=== PATIENT | male | born 1960 | race Caucasian/White ===

== ENCOUNTER 2017-10-11 12:49 | Inpatient (IN) | payer MEDICARE, MEDICAID ==
[~2017-10-11] VITALS: Ht 170.2 cm; Wt 67.6 kg
[2017-10-11 12:31] VITALS: BP 116/60
[2017-10-11] MEDS ORDERED: LORazepam 2 MG TABLET PO PRN (13:15)
[2017-10-11] MEDS ORDERED: HALOPERIDOL 5 MG TABLET PO PRN (13:15)
[2017-10-11] MEDS ORDERED: RANI300C PO (13:45)
[2017-10-11] MEDS ORDERED: OLAN10TA3 PO (13:45)
[2017-10-11] MEDS ORDERED: RISP3 PO (13:45)
[2017-10-11] MEDS ORDERED: LITH300C3 PO (13:45)
[2017-10-11] MEDS ORDERED: INFLUENZA VIRUS VACCINE QVS 2017-18 (3YR+)/PF 60 MCG/0.5 ML SYRINGE IM ONE (14:15)
[2017-10-11 14:56] VITALS: BP 117/77
[2017-10-11 18:52] VITALS: BP 125/71
[2017-10-11] MEDS: LITHIUM CARBONATE 300 MG CAPSULE PO SCH (18:55)
[2017-10-11] MEDS: RisperiDONE 3 MG TABLET PO SCH (18:56)
[2017-10-11 23:30] VITALS: BP 120/70
[2017-10-12 03:30] VITALS: BP 124/63
[2017-10-12 08:24] LABS: BASOPHILS # (AUTO) 0.09 K/uL (0.00-0.20); BASOPHILS % (AUTO) 1.2 % (0.0-2.0); EOSINOPHILS # (AUTO) 0.38 K/uL (0.00-0.70); EOSINOPHILS % (AUTO) 5.04 % (1.0-6.0); HEMOGLOBIN 12.7 g/dL (13.5-17.5); LYMPHOCYTES # (AUTO) 1.7 K/uL (1.0-4.8); LYMPHOCYTES % (AUTO) 22.2 % (22.0-44.0); MEAN CORPUSCULAR HEMOGLOBIN 28.2 pg (26.0-34.0); MEAN CORPUSCULAR HGB CONC 31.7 G/dL (31.0-37.0); MEAN CORPUSCULAR VOLUME 89 fL (80-100); MONOCYTES # (AUTO) 0.6 K/uL (0.1-1.0); MONOCYTES % (AUTO) 8.1 % (2.0-9.0); NEUTROPHILS # (AUTO) 4.7 K/uL (1.8-7.7); NEUTROPHILS % (AUTO) 63.5 % (40.0-70.0); PLATELET COUNT (AUTO) 311 K/uL (150-450); RED CELL DISTRIBUTION WIDTH 13.9 % (11.5-14.5); WHITE BLOOD COUNT (AUTO) 7.5 K/uL (4.5-11.0)
[2017-10-12 08:40] LABS: LITHIUM 0.21 mmol/L (0.60-1.20)
[2017-10-12 08:59] LABS: ALANINE AMINOTRANSFERASE 69 U/L (12-78); ALBUMIN 3.6 g/dL (3.4-5.0); ANION GAP 4 mmol/L (8-16); ASPARTATE AMINOTRANSFERASE 59 U/L (15-37); BILIRUBIN,TOTAL 0.7 mg/dL (0.1-1.0); CALCIUM, TOTAL 9.9 mg/dL (8.8-10.5); CARBON DIOXIDE 30 mmol/L (22-29); CHLORIDE 102 mmol/L (98-107); CHOL/HDL RATIO 3.4 (4.2-7.3); CREATININE 0.93 mg/dL (0.60-1.30); GLOMERULAR FILTR. RATE CALC > 60 mL/min (>60); POTASSIUM 4.7 mmol/L (3.5-5.1); SODIUM SERUM 136 mmol/L (136-145); THYROID STIMULATING HORMONE 1.67 uIU/mL (0.36-3.74); TOTAL PROTEIN, SERUM 7.7 g/dL (6.4-8.2); UREA NITROGEN, BLOOD 19 mg/dL (7-18)
[2017-10-12] MEDS: RANITIDINE HCL 150 MG TABLET PO SCH (09:00)
[2017-10-12] MEDS: LITHIUM CARBONATE 300 MG CAPSULE PO SCH ×2 (09:00→16:43)
[2017-10-12] MEDS: RisperiDONE 3 MG TABLET PO SCH ×2 (09:00→16:43)
[2017-10-12] MEDS: NICOTINE 21 MG/24 HOUR PATCH TD SCH (09:01)
[2017-10-12 10:23] VITALS: BP 127/77
[2017-10-12 16:13] VITALS: BP 104/62
[2017-10-12] MEDS: ZOLPIDEM TARTRATE 10 MG TABLET PO PRN (22:14)
[2017-10-13] VITALS: BP 108/75
[2017-10-13 00:25] VITALS: BP 108/75
[2017-10-13] MEDS: TraMADol HCL 50 MG TABLET PO PRN (00:27)
[2017-10-13 08:36] VITALS: BP 117/77
[2017-10-13] MEDS: RANITIDINE HCL 150 MG TABLET PO SCH (08:52)
[2017-10-13] MEDS: LITHIUM CARBONATE 300 MG CAPSULE PO SCH ×2 (08:52→16:42)
[2017-10-13] MEDS: RisperiDONE 3 MG TABLET PO SCH ×2 (08:52→16:42)
[2017-10-13] MEDS: NICOTINE 21 MG/24 HOUR PATCH TD SCH (08:52)
[2017-10-13 16:17] VITALS: BP 123/60
[2017-10-14 00:36] VITALS: BP 122/74
[2017-10-14] MEDS: TraMADol HCL 50 MG TABLET PO PRN (05:23)
[2017-10-14 07:54] LABS: HEPATITIS Bs ANTIGEN SCREEN P Negative (Negative); HEPATITIS C AB SCREEN >11.0 s/co ratio (0.0-0.9)
[2017-10-14 08:23] VITALS: BP 107/71
[2017-10-14] MEDS: NICOTINE 21 MG/24 HOUR PATCH TD SCH (08:23)
[2017-10-14] MEDS: LITHIUM CARBONATE 300 MG CAPSULE PO SCH ×2 (08:23→16:14)
[2017-10-14] MEDS: RANITIDINE HCL 150 MG TABLET PO SCH (08:23)
[2017-10-14] MEDS: RisperiDONE 3 MG TABLET PO SCH ×2 (08:23→16:14)
[2017-10-14 16:19] VITALS: BP 120/81
[2017-10-15] MEDS: ZOLPIDEM TARTRATE 10 MG TABLET PO PRN (00:37)
[2017-10-15 00:56] VITALS: BP 113/70
[2017-10-15] MEDS: RisperiDONE 3 MG TABLET PO SCH ×2 (08:14→16:17)
[2017-10-15] MEDS: LITHIUM CARBONATE 300 MG CAPSULE PO SCH ×2 (08:14→16:17)
[2017-10-15] MEDS: RANITIDINE HCL 150 MG TABLET PO SCH (08:15)
[2017-10-15] MEDS: NICOTINE 21 MG/24 HOUR PATCH TD SCH (08:15)
[2017-10-15 08:36] VITALS: BP_SYST 111; BP_SYST 123; BP_DIAS 66; BP_DIAS 73
[2017-10-15 16:17] VITALS: BP 131/77
[2017-10-16 00:01] VITALS: BP 106/68
[2017-10-16] MEDS: ZOLPIDEM TARTRATE 10 MG TABLET PO PRN (00:02)
[2017-10-16] MEDS: LITHIUM CARBONATE 300 MG CAPSULE PO SCH (08:24)
[2017-10-16] MEDS: NICOTINE 21 MG/24 HOUR PATCH TD SCH (08:25)
[2017-10-16] MEDS: RisperiDONE 3 MG TABLET PO SCH (08:25)
[2017-10-16] MEDS: RANITIDINE HCL 150 MG TABLET PO SCH (08:25)
[2017-10-16 08:56] VITALS: BP 118/88
[2017-10-16] MEDS ORDERED: NICO-704 TD (10:54)
[2017-10-17 08:33] LABS: GC DNA N.A. AMPLIFY Negative (Negative)
== END 2017-10-16 12:55 | disposition home or self-care (01) | DRG 885 ==
LOC: EDSTATUS 12:49 → B2X 13:16 → EDSTATUS 13:20 → B2X 10-15 04:59
PROVIDERS: ADMIT Psychiatry & Neurology Psychiatry; ATTEND Psychiatry & Neurology Psychiatry
DX: F25.9 Schizoaffective disorder, unspecified (principal); R45.851 Suicidal ideations; F17.200 Nicotine dependence, unspecified, uncomplicated; G47.00 Insomnia, unspecified; J44.9 Chronic obstructive pulmonary disease, unspecified; K21.9 Gastro-esophageal reflux disease without esophagitis; Z90.49 Acquired absence of other specified parts of digestive tract; S62.316A Displaced fracture of base of fifth metacarpal bone, right hand, initial encounter for closed fracture; X58.XXXA Exposure to other specified factors, initial encounter; Y93.89 Activity, other specified; Y92.89 Other specified places as the place of occurrence of the external cause; Y99.8 Other external cause status; Z71.6 Tobacco abuse counseling; Z79.899 Other long term (current) drug therapy
CPT/HCPCS: 80074; 82306; 83036; 84439; 84443; 86592; 86694; 87389; 87491; 87591

== ENCOUNTER 2017-10-11 15:33 | Emergency (ER) | payer MEDICARE, MEDICAID ==
[~2017-10-11] VITALS: Ht 172.7 cm; Wt 81.8 kg
[~2017-10-11 15:33] MED LIST: LITH300C3 PO; OLAN10TA3 PO; RANI300C PO; RISP3 PO
[2017-10-11] MEDS ORDERED: TraMADol HCL 50 MG TABLET PO ONE (15:45)
[2017-10-11 16:57] VITALS: BP 146/82
== END 2017-10-11 18:22 | disposition home or self-care (01) ==
LOC: EMS 15:40
DX: S62.316A Displaced fracture of base of fifth metacarpal bone, right hand, initial encounter for closed fracture (principal); X58.XXXA Exposure to other specified factors, initial encounter; Y93.89 Activity, other specified; Y92.89 Other specified places as the place of occurrence of the external cause; Y99.8 Other external cause status
CPT/HCPCS: 99284

== ENCOUNTER 2017-10-27 15:30 | Inpatient (IN) | payer MEDICARE, MEDICAID ==
[~2017-10-27] VITALS: Ht 170.2 cm; Wt 70.5 kg
[~2017-10-27 15:30] MED LIST changes: +NICO-704 TD; -OLAN10TA3 PO
[2017-10-27] MEDS ORDERED: VANCOMYCIN HCL 1 GM/D5% WATER 200 ML IV ONE (16:15)
[2017-10-27 16:38] LABS: BASOPHILS % (AUTO) 1.1 % (0.0-2.0); EOSINOPHILS % (AUTO) 6.4 % (1.0-6.0); HEMATOCRIT 34.1 % (41-53); HEMOGLOBIN 11.6 g/dL (13.5-17.5); LYMPHOCYTES # (AUTO) 1.7 K/uL (1.0-4.8); LYMPHOCYTES % (AUTO) 18.8 % (22.0-44.0); MEAN CORPUSCULAR HEMOGLOBIN 29.9 pg (26.0-34.0); MEAN CORPUSCULAR HGB CONC 34.2 G/dL (31.0-37.0); MEAN CORPUSCULAR VOLUME 87 fL (80-100); MONOCYTES # (AUTO) 0.6 K/uL (0.1-1.0); MONOCYTES % (AUTO) 7.4 % (2.0-9.0); NEUTROPHILS # (AUTO) 5.8 K/uL (1.8-7.7); NEUTROPHILS % (AUTO) 66.3 % (40.0-70.0); PLATELET COUNT (AUTO) 478 K/uL (150-450); RED CELL DISTRIBUTION WIDTH 14.4 % (11.5-14.5); WHITE BLOOD COUNT (AUTO) 8.8 K/uL (4.5-11.0)
[2017-10-27 17:02] LABS: ANION GAP 10 mmol/L (8-16); CALCIUM, TOTAL 9.1 mg/dL (8.8-10.5); CARBON DIOXIDE 27 mmol/L (22-29); CHLORIDE 101 mmol/L (98-107); CREATININE 0.76 mg/dL (0.60-1.30); GLOMERULAR FILTR. RATE CALC > 60 mL/min (>60); POTASSIUM 3.8 mmol/L (3.5-5.1); SODIUM SERUM 138 mmol/L (136-145); UREA NITROGEN, BLOOD 17 mg/dL (7-18)
[2017-10-27 17:07] LABS: ALANINE AMINOTRANSFERASE 59 U/L (12-78); ALBUMIN 3.6 g/dL (3.4-5.0); ASPARTATE AMINOTRANSFERASE 39 U/L (15-37); BILIRUBIN,TOTAL 0.4 mg/dL (0.1-1.0)
[2017-10-27] MEDS ORDERED: ONDANSETRON HCL 4 MG/2 ML VIAL IVP PRN (17:30)
[2017-10-27] MEDS ORDERED: ACETAMINOPHEN 325 MG TABLET PO PRN (17:30)
[2017-10-27] MEDS ORDERED: 0.9% SODIUM CHLORIDE 10 ML SYRINGE IVP PRN (17:30)
[2017-10-27 18:44] VITALS: BP 134/71
[2017-10-27 23:18] VITALS: BP 126/77
[2017-10-28] MEDS ORDERED: VANCOMYCIN HCL 1 GM/D5% WATER 200 ML IV SCH
[2017-10-28] MEDS ORDERED: 0.9% SODIUM CHLORIDE 10 ML SYRINGE IVP PRN
[2017-10-28] MEDS ORDERED: VANCOMYCIN HCL 1.5 GM in DEXTROSE 5%-WATER 250 ML IV ONE (00:30)
[2017-10-28] MEDS ORDERED: INFLUENZA VIRUS VACCINE QVS 2017-18 (3YR+)/PF 60 MCG/0.5 ML SYRINGE IM ONE (00:30)
[2017-10-28] MEDS ORDERED: SODIUM CHLORIDE 0.9% 250 ML IV ONE (00:33)
[2017-10-28] MEDS: RisperiDONE 3 MG TABLET PO SCH ×2 (00:55→09:01)
[2017-10-28 05:27] VITALS: BP 136/66
[2017-10-28 06:32] LABS: BASOPHILS % (AUTO) 1.5 % (0.0-2.0); EOSINOPHILS % (AUTO) 6.6 % (1.0-6.0); HEMATOCRIT 32.1 % (41-53); HEMOGLOBIN 10.8 g/dL (13.5-17.5); LYMPHOCYTES # (AUTO) 1.3 K/uL (1.0-4.8); LYMPHOCYTES % (AUTO) 19.1 % (22.0-44.0); MEAN CORPUSCULAR HEMOGLOBIN 29.7 pg (26.0-34.0); MEAN CORPUSCULAR HGB CONC 33.7 G/dL (31.0-37.0); MEAN CORPUSCULAR VOLUME 88 fL (80-100); MONOCYTES # (AUTO) 0.6 K/uL (0.1-1.0); MONOCYTES % (AUTO) 8.9 % (2.0-9.0); NEUTROPHILS # (AUTO) 4.3 K/uL (1.8-7.7); NEUTROPHILS % (AUTO) 63.9 % (40.0-70.0); PLATELET COUNT (AUTO) 400 K/uL (150-450); RED BLOOD CELL COUNT(AUTO) 3.64 MIL/uL (4.50-5.90); RED CELL DISTRIBUTION WIDTH 14.5 % (11.5-14.5); WHITE BLOOD COUNT (AUTO) 6.7 K/uL (4.5-11.0)
[2017-10-28 07:35] VITALS: BP 132/79
[2017-10-28 07:42] LABS: ALANINE AMINOTRANSFERASE 60 U/L (12-78); ALBUMIN 3.1 g/dL (3.4-5.0); ANION GAP 11 mmol/L (8-16); ASPARTATE AMINOTRANSFERASE 48 U/L (15-37); BILIRUBIN,TOTAL 0.3 mg/dL (0.1-1.0); CALCIUM, TOTAL 8.9 mg/dL (8.8-10.5); CARBON DIOXIDE 24 mmol/L (22-29); CHLORIDE 106 mmol/L (98-107); CREATININE 0.71 mg/dL (0.60-1.30); GLOMERULAR FILTR. RATE CALC > 60 mL/min (>60); POTASSIUM 3.7 mmol/L (3.5-5.1); SODIUM SERUM 141 mmol/L (136-145); TOTAL PROTEIN, SERUM 7.2 g/dL (6.4-8.2); UREA NITROGEN, BLOOD 15 mg/dL (7-18)
[2017-10-28] MEDS ORDERED: VANCOMYCIN HCL 1.5 GM in DEXTROSE 5%-WATER 250 ML IV SCH (08:00)
[2017-10-28] MEDS: HEPARIN SODIUM,PORCINE 5,000 UNITS/ML VIAL SQ SCH ×3 (09:00→23:35)
[2017-10-28] MEDS: RANITIDINE HCL 150 MG TABLET PO SCH (09:01)
[2017-10-28] MEDS: LITHIUM CARBONATE 300 MG CAPSULE PO SCH (09:01)
[2017-10-28] MEDS: VANCOMYCIN HCL 1 GM/D5% WATER 200 ML IV SCH ×2 (09:01→21:20)
[2017-10-28] MEDS: NICOTINE 21 MG/24 HOUR PATCH TD SCH (09:01)
[2017-10-28 11:30] VITALS: BP 125/72
[2017-10-28 15:39] VITALS: BP 139/78
[2017-10-28] MEDS: MULTIVITAMINS WITH MINERALS, THERAPEUTIC TABLET PO SCH (17:38)
[2017-10-28 20:11] VITALS: BP 115/61
[2017-10-28 23:10] VITALS: BP 130/74
[2017-10-28] MEDS: HYDROCODONE/ACETAMINOPHEN 5-325 MG TABLET PO PRN (23:31)
[2017-10-28] MEDS: DiphenhydrAMINE HCL 25 MG CAPSULE PO PRN (23:32)
[2017-10-29 04:19] VITALS: BP 124/66
[2017-10-29 06:51] LABS: CARBON DIOXIDE 29 mmol/L (22-29); CHLORIDE 100 mmol/L (98-107); POTASSIUM 3.6 mmol/L (3.5-5.1); SODIUM SERUM 137 mmol/L (136-145)
[2017-10-29 06:52] LABS: ANION GAP 8 mmol/L (8-16); CALCIUM, TOTAL 9.2 mg/dL (8.8-10.5); CREATININE 0.89 mg/dL (0.60-1.30); GLOMERULAR FILTR. RATE CALC > 60 mL/min (>60); UREA NITROGEN, BLOOD 14 mg/dL (7-18)
[2017-10-29 08:03] VITALS: BP 127/77
[2017-10-29] MEDS: RANITIDINE HCL 150 MG TABLET PO SCH (08:19)
[2017-10-29] MEDS: LITHIUM CARBONATE 300 MG CAPSULE PO SCH (08:19)
[2017-10-29] MEDS: RisperiDONE 3 MG TABLET PO SCH (08:19)
[2017-10-29] MEDS: MULTIVITAMINS WITH MINERALS, THERAPEUTIC TABLET PO SCH (08:19)
[2017-10-29] MEDS: VANCOMYCIN HCL 1 GM/D5% WATER 200 ML IV SCH ×2 (08:19→21:22)
[2017-10-29] MEDS: NICOTINE 21 MG/24 HOUR PATCH TD SCH (08:19)
[2017-10-29] MEDS: HEPARIN SODIUM,PORCINE 5,000 UNITS/ML VIAL SQ SCH ×2 (08:19→16:43)
[2017-10-29 11:25] VITALS: BP 105/69
[2017-10-29 15:18] VITALS: BP 128/64
[2017-10-29 20:50] VITALS: BP 129/84
[2017-10-30 00:04] VITALS: BP_SYST 113; BP_SYST 137; BP_DIAS 40; BP_DIAS 77
[2017-10-30] MEDS: LITHIUM CARBONATE 300 MG CAPSULE PO SCH (04:46)
[2017-10-30] MEDS: RisperiDONE 3 MG TABLET PO SCH (04:46)
[2017-10-30 05:33] VITALS: BP 113/65
[2017-10-30 06:58] LABS: ANION GAP 8 mmol/L (8-16); CALCIUM, TOTAL 9.5 mg/dL (8.8-10.5); CARBON DIOXIDE 26 mmol/L (22-29); CHLORIDE 101 mmol/L (98-107); CREATININE 0.89 mg/dL (0.60-1.30); GLOMERULAR FILTR. RATE CALC > 60 mL/min (>60); POTASSIUM 3.9 mmol/L (3.5-5.1); SODIUM SERUM 135 mmol/L (136-145); UREA NITROGEN, BLOOD 18 mg/dL (7-18)
[2017-10-30 07:22] VITALS: BP 102/68
[2017-10-30] MEDS: NICOTINE 21 MG/24 HOUR PATCH TD SCH (08:56)
[2017-10-30] MEDS: RANITIDINE HCL 150 MG TABLET PO SCH (08:56)
[2017-10-30] MEDS: MULTIVITAMINS WITH MINERALS, THERAPEUTIC TABLET PO SCH (08:56)
[2017-10-30] MEDS: VANCOMYCIN HCL 1 GM/D5% WATER 200 ML IV SCH ×2 (08:56→20:41)
[2017-10-30] MEDS: HEPARIN SODIUM,PORCINE 5,000 UNITS/ML VIAL SQ SCH ×4 (08:56→23:53)
[2017-10-30 11:44] VITALS: BP 118/68
[2017-10-30 15:51] VITALS: BP 137/80
[2017-10-30 20:52] VITALS: BP 135/65
[2017-10-30] MEDS: DiphenhydrAMINE HCL 25 MG CAPSULE PO PRN (23:48)
[2017-10-31 00:07] VITALS: BP 111/81
[2017-10-31 04:40] VITALS: BP 114/85
[2017-10-31] MEDS: HYDROCODONE/ACETAMINOPHEN 5-325 MG TABLET PO PRN (05:39)
[2017-10-31 06:25] LABS: ANION GAP 6 mmol/L (8-16); CALCIUM, TOTAL 10.1 mg/dL (8.8-10.5); CARBON DIOXIDE 30 mmol/L (22-29); CHLORIDE 102 mmol/L (98-107); CREATININE 0.89 mg/dL (0.60-1.30); GLOMERULAR FILTR. RATE CALC > 60 mL/min (>60); POTASSIUM 4.7 mmol/L (3.5-5.1); SODIUM SERUM 138 mmol/L (136-145); UREA NITROGEN, BLOOD 22 mg/dL (7-18)
[2017-10-31 07:09] VITALS: BP 125/78
[2017-10-31] MEDS: HEPARIN SODIUM,PORCINE 5,000 UNITS/ML VIAL SQ SCH (08:34)
[2017-10-31] MEDS: RANITIDINE HCL 150 MG TABLET PO SCH (08:34)
[2017-10-31] MEDS: MULTIVITAMINS WITH MINERALS, THERAPEUTIC TABLET PO SCH (08:34)
[2017-10-31] MEDS: RisperiDONE 3 MG TABLET PO SCH (08:34)
[2017-10-31] MEDS: NICOTINE 21 MG/24 HOUR PATCH TD SCH (08:34)
[2017-10-31] MEDS: LITHIUM CARBONATE 300 MG CAPSULE PO SCH (08:34)
[2017-10-31] MEDS: VANCOMYCIN HCL 1 GM/D5% WATER 200 ML IV SCH (08:35)
[2017-10-31] MEDS ORDERED: MUPIROCIN CALCIUM 2% 22 GM OINTMENT TP SCH (09:00)
[2017-10-31] MEDS ORDERED: CHLORHEXIDINE GLUCONATE 4% 118 ML TOPICAL LIQUID TP SCH (09:00)
[2017-10-31 11:25] VITALS: BP 123/71
[2017-10-31] MEDS ORDERED: SULF1TAB42 PO (14:16)
== END 2017-10-31 15:20 | disposition home or self-care (01) | DRG 603 ==
LOC: EMS 15:32 → 6N 17:33
PROVIDERS: ADMIT Family Medicine; ATTEND Family Medicine
DX: L03.113 Cellulitis of right upper limb (principal); F20.9 Schizophrenia, unspecified; S62.318A Displaced fracture of base of other metacarpal bone, initial encounter for closed fracture; K21.9 Gastro-esophageal reflux disease without esophagitis; Z87.891 Personal history of nicotine dependence; S61.431A Puncture wound without foreign body of right hand, initial encounter; B95.61 Methicillin susceptible Staphylococcus aureus infection as the cause of diseases classified elsewhere
CPT/HCPCS: 80307; 83735; 86140; 87040; 87070; 87081; 87205; 90471; 96365; 99285; G0480; J1644; J3370; J7050; J7060

== ENCOUNTER 2017-12-04 18:57 | Inpatient (IN) | payer MEDICARE, MEDICAID ==
[~2017-12-04] VITALS: Ht 172.7 cm; Wt 68.0 kg
[~2017-12-04 18:57] MED LIST changes: +SULF1TAB42 PO
[2017-12-04 19:37] VITALS: BP 131/79
[2017-12-04] MEDS ORDERED: INFLUENZA VIRUS VACCINE QVS 2017-18 (3YR+)/PF 60 MCG/0.5 ML SYRINGE IM ONE (20:00)
[2017-12-05 00:30] VITALS: BP 127/82
[2017-12-05 08:00] VITALS: BP 122/75
[2017-12-05] MEDS: CEPHALEXIN MONOHYDRATE 500 MG CAPSULE PO SCH ×4 (09:25→20:14)
[2017-12-05] MEDS: RisperiDONE 3 MG TABLET PO SCH (16:33)
[2017-12-05 17:03] VITALS: BP 125/64
[2017-12-06 01:54] VITALS: BP 132/76
[2017-12-06 08:11] LABS: BASOPHILS % (AUTO) 0.6 % (0.0-2.0); EOSINOPHILS % (AUTO) 1.6 % (1.0-6.0); HEMATOCRIT 35.4 % (41-53); LYMPHOCYTES # (AUTO) 1.4 K/uL (1.0-4.8); MEAN CORPUSCULAR HEMOGLOBIN 29.6 pg (26.0-34.0); MEAN CORPUSCULAR HGB CONC 33.9 G/dL (31.0-37.0); MEAN CORPUSCULAR VOLUME 87 fL (80-100); MONOCYTES # (AUTO) 0.6 K/uL (0.1-1.0); MONOCYTES % (AUTO) 7.2 % (2.0-9.0); NEUTROPHILS # (AUTO) 5.8 K/uL (1.8-7.7); NEUTROPHILS % (AUTO) 72.6 % (40.0-70.0); PLATELET COUNT (AUTO) 316 K/uL (150-450); RED BLOOD CELL COUNT(AUTO) 4.06 MIL/uL (4.50-5.90); RED CELL DISTRIBUTION WIDTH 14.8 % (11.5-14.5)
[2017-12-06 08:17] LABS: HEMOGLOBIN A1C 6.2 % (4.5-6.2)
[2017-12-06] MEDS: CEPHALEXIN MONOHYDRATE 500 MG CAPSULE PO SCH ×4 (08:46→21:31)
[2017-12-06] MEDS: RisperiDONE 3 MG TABLET PO SCH ×2 (08:46→16:32)
[2017-12-06 09:07] LABS: ALANINE AMINOTRANSFERASE 55 U/L (12-78); ALBUMIN 3.2 g/dL (3.4-5.0); ALKALINE PHOSPHATASE 81 U/L (46-116); ANION GAP 11 mmol/L (8-16); ASPARTATE AMINOTRANSFERASE 39 U/L (15-37); BILIRUBIN,TOTAL 0.4 mg/dL (0.1-1.0); CARBON DIOXIDE 25 mmol/L (22-29); CHLORIDE 105 mmol/L (98-107); CHOL/HDL RATIO 3.1 (4.2-7.3); CHOLESTEROL 94 mg/dL (131-200); CREATININE 0.89 mg/dL (0.60-1.30); GLOMERULAR FILTR. RATE CALC > 60 mL/min (>60); GLUCOSE,RANDOM 91 mg/dL (70-110); HDL CHOLESTEROL 30 mg/dL (40-60); LDL CHOL (CALC.) 46 mg/dL (0-130); SODIUM SERUM 141 mmol/L (136-145); THYROID STIMULATING HORMONE 0.79 uIU/mL (0.36-3.74); TOTAL PROTEIN, SERUM 7.5 g/dL (6.4-8.2); TRIGLYCERIDES 92 mg/dL (15-150); UREA NITROGEN, BLOOD 15 mg/dL (7-18)
[2017-12-06 09:10] LABS: LITHIUM < 0.20 mmol/L (0.60-1.20)
[2017-12-06 09:27] VITALS: BP 111/61
[2017-12-06 16:38] VITALS: BP 116/70
[2017-12-07 04:55] VITALS: BP 105/68
[2017-12-07] MEDS: RisperiDONE 3 MG TABLET PO SCH ×2 (08:23→16:21)
[2017-12-07] MEDS: LORazepam 2 MG TABLET PO PRN (08:23)
[2017-12-07 08:30] VITALS: BP 111/63
[2017-12-07] MEDS: CEPHALEXIN MONOHYDRATE 500 MG CAPSULE PO SCH ×4 (08:33→20:30)
[2017-12-07 16:16] VITALS: BP 142/68
[2017-12-08 06:56] VITALS: BP 131/82
[2017-12-08] MEDS: RisperiDONE 3 MG TABLET PO SCH ×2 (08:04→16:27)
[2017-12-08] MEDS: CEPHALEXIN MONOHYDRATE 500 MG CAPSULE PO SCH ×4 (08:04→20:16)
[2017-12-08 09:26] VITALS: BP 100/69
[2017-12-08] MEDS: LORazepam 2 MG TABLET PO PRN (12:02)
[2017-12-08] MEDS ORDERED: BISACODYL 5 MG EC TABLET PO PRN (13:45)
[2017-12-08 16:18] VITALS: BP 122/68
[2017-12-09] MEDS: ZOLPIDEM TARTRATE 10 MG TABLET PO PRN ×2 (00:49→22:14)
[2017-12-09 01:10] VITALS: BP 116/74
[2017-12-09 08:39] VITALS: BP 126/71
[2017-12-09] MEDS: RisperiDONE 3 MG TABLET PO SCH ×2 (08:45→16:53)
[2017-12-09] MEDS: CEPHALEXIN MONOHYDRATE 500 MG CAPSULE PO SCH ×4 (08:45→20:04)
[2017-12-09 16:11] VITALS: BP 115/65
[2017-12-10 05:52] VITALS: BP 130/80
[2017-12-10] MEDS: RisperiDONE 3 MG TABLET PO SCH ×2 (08:31→16:23)
[2017-12-10 08:49] VITALS: BP 121/65
[2017-12-10] MEDS: LORazepam 2 MG TABLET PO PRN (16:24)
[2017-12-10 16:29] VITALS: BP 114/69
[2017-12-11 01:07] VITALS: BP 112/77
[2017-12-11] MEDS: ZOLPIDEM TARTRATE 10 MG TABLET PO PRN (01:21)
[2017-12-11 08:13] VITALS: BP 115/75
[2017-12-11] MEDS ORDERED: RISP3 PO (08:14)
[2017-12-11] MEDS: RisperiDONE 3 MG TABLET PO SCH (08:23)
== END 2017-12-11 13:20 | disposition home or self-care (01) | DRG 885 ==
LOC: B2S 19:34
PROVIDERS: ADMIT Psychiatry & Neurology Child & Adolescent Psychiatry; ATTEND Psychiatry & Neurology Child & Adolescent Psychiatry
DX: F25.0 Schizoaffective disorder, bipolar type (principal); F23 Brief psychotic disorder; B19.20 Unspecified viral hepatitis C without hepatic coma; D64.9 Anemia, unspecified; F41.9 Anxiety disorder, unspecified; J44.9 Chronic obstructive pulmonary disease, unspecified; K21.9 Gastro-esophageal reflux disease without esophagitis; K59.00 Constipation, unspecified; L03.011 Cellulitis of right finger; R73.03 Prediabetes; R79.89 Other specified abnormal findings of blood chemistry
CPT/HCPCS: 83036; 84439; 84443

== ENCOUNTER 2023-07-01 17:54 | Emergency (ER) | payer MEDICARE, MEDICAID ==
[~2023-07-01] VITALS: Ht 170.2 cm; Wt 62.7 kg
[~2023-07-01 17:54] MED LIST changes: +AMLO-258 PO; +BACTDSB PO; +BENA5TAB48 PO; -LITH300C3 PO; -NICO-704 TD; +OMEP20 PO; +QUET25TA PO; -RANI300C PO; -RISP3 PO; -SULF1TAB42 PO; +THIA100T80 PO; +TRAZ-257 PO
[2023-07-01 18:10] VITALS: BP 121/69; PULSE 90; RESP 18; TEMP 99
[2023-07-01 23:25] LABS: BASOPHILS % (AUTO) 1.3 % (0.0-2.0); EOSINOPHILS % (AUTO) 5.6 % (1.0-6.0); HEMOGLOBIN 9.4 g/dL (13.5-17.5); LYMPHOCYTES # (AUTO) 1.3 K/uL (1.0-4.8); LYMPHOCYTES % (AUTO) 18.1 % (22.0-44.0); MEAN CORPUSCULAR HEMOGLOBIN 23.9 pg (26.0-34.0); MEAN CORPUSCULAR HGB CONC 31.2 G/dL (31.0-37.0); MEAN CORPUSCULAR VOLUME 77 fL (80-100); MONOCYTES # (AUTO) 0.6 K/uL (0.1-1.0); MONOCYTES % (AUTO) 8.7 % (2.0-9.0); NEUTROPHILS # (AUTO) 4.9 K/uL (1.8-7.7); NEUTROPHILS % (AUTO) 66.3 % (40.0-70.0); PLATELET COUNT (AUTO) 341 K/uL (150-450); RED BLOOD CELL COUNT(AUTO) 3.92 MIL/uL (4.50-5.90); RED CELL DISTRIBUTION WIDTH 16.5 % (11.5-14.5)
[2023-07-01 23:33] LABS: ANION GAP 6 mmol/L (8-16); CALCIUM, TOTAL 9.2 mg/dL (8.8-10.5); CARBON DIOXIDE 28 mmol/L (22-29); CHLORIDE 103 mmol/L (98-107); CREATININE 0.79 mg/dL (0.60-1.30); GLOMERULAR FILTR. RATE CALC > 60 mL/min (>60); GLUCOSE,RANDOM 104 mg/dL (70-110); POTASSIUM 3.6 mmol/L (3.5-5.1); SODIUM SERUM 137 mmol/L (136-145)
[2023-07-01 23:38] LABS: ALANINE AMINOTRANSFERASE 48 U/L (12-78); ALBUMIN 3.3 g/dL (3.4-5.0); ALKALINE PHOSPHATASE 98 U/L (46-116); ASPARTATE AMINOTRANSFERASE 50 U/L (15-37); BILIRUBIN,TOTAL 0.6 mg/dL (0.1-1.0); TOTAL PROTEIN, SERUM 8.4 g/dL (6.4-8.2)
== END 2023-07-02 01:37 | disposition home or self-care (01) ==
LOC: EMS 17:55
DX: M79.672 Pain in left foot (principal); M79.671 Pain in right foot; F20.9 Schizophrenia, unspecified; D64.9 Anemia, unspecified; F31.9 Bipolar disorder, unspecified; J44.9 Chronic obstructive pulmonary disease, unspecified; K21.9 Gastro-esophageal reflux disease without esophagitis; F17.210 Nicotine dependence, cigarettes, uncomplicated
CPT/HCPCS: 99283; 80053; 85025; 36415; G0480